=== PATIENT | female | born 1955 | race Hispanic/Latino ===

== ENCOUNTER 2018-02-24 04:51 | Observation (INO) | payer MEDICAID, SELFPAY ==
[2018-02-24 07:57] LABS: Troponin I 0.126 ng/mL (< 0.028)
[2018-02-24] MEDS ORDERED: Acetaminophen 325 MG TAB PO PRN ×2 (08:25→09:16)
[2018-02-24] MEDS ORDERED: Ondansetron PF 4 MG/2 ML Vial IVP PRN ×2 (08:25→09:16)
[2018-02-24] MEDS ORDERED: Ondansetron ODT 4 MG TAB SL PRN (08:25)
[2018-02-24 08:38] VITALS: BMI 34.2
[2018-02-24] MEDS ORDERED: Furosemide 20 MG/2 ML VIAL SLOW IVP SCH (09:16)
[2018-02-24] MEDS ORDERED: Bisacodyl 5 MG TAB PO PRN (09:16)
[2018-02-24] MEDS ORDERED: Bisacodyl 10 MG SUPP PR PRN (09:16)
[2018-02-24] MEDS ORDERED: HumaLOG 300 UNITS/3 ML VIAL SC PRN (09:16)
[2018-02-24] MEDS ORDERED: Calcium Carbonate 500 MG ChewTAB PO PRN (09:16)
[2018-02-24] MEDS ORDERED: Loratadine 10 MG TAB PO PRN (09:16)
[2018-02-24] MEDS ORDERED: Sodium Chloride 0.65% Nasal 44 ML BOT EA NARE PRN (09:16)
[2018-02-24] MEDS ORDERED: Senokot S 8.6-50 MG TAB PO PRN (09:16)
[2018-02-24] MEDS ORDERED: Eucerin (Mineral Oil/Petrolatum,White) 30 gm Jar TOP PRN (09:16)
[2018-02-24] MEDS ORDERED: Ondansetron ODT 4 MG TAB PO PRN (09:16)
[2018-02-24] MEDS ORDERED: Artificial Tears 18 DROP/0.9 ML EA EYE PRN (09:16)
[2018-02-24] MEDS ORDERED: Diabetic Tussin 200 MG/10 ML UDCUP PO PRN (09:16)
[2018-02-24] MEDS ORDERED: Dextrose 50% Abboject 50 ML SYRINGE SLOW IVP PRN (09:16)
[2018-02-24] MEDS ORDERED: Cepastat Lozenges 1 LOZ PO PRN (09:16)
[2018-02-24] MEDS ORDERED: hydrALAZINE 20 MG/ML VIAL SLOW IVP PRN (09:16)
[2018-02-24] MEDS ORDERED: HYDROcodone/Acetaminophen 5/325 mg Tablet PO PRN (09:16)
[2018-02-24] MEDS ORDERED: Loperamide HCl 2 MG CAP PO PRN (09:16)
[2018-02-24] MEDS ORDERED: Zolpidem Tartrate 5 MG TAB PO PRN (09:16)
[2018-02-24] MEDS ORDERED: Dextrose 5% in Water 1,000 ML IV PRN (09:16)
[2018-02-24] MEDS ORDERED: Nitroglycerin 0.4 MG TAB (25 Tab Bottle) SL PRN (09:16)
[2018-02-24] MEDS ORDERED: Potassium Chloride 20 MEQ TAB PO SCH (09:45)
[2018-02-24] MEDS: HumaLOG 300 UNITS/3 ML VIAL SC PRN ×2 (10:46→16:54)
--- NOTE | 2018-02-24 12:56 | HP ---
PRIMARY CARE PHYSICIAN: Luba Ferguson MD REASON FOR ADMISSION: Acute on chronic systolic congestive heart failure exacerbation. HISTORY OF PRESENT ILLNESS: A 62-year-old female, who has underlying history of hypertension, diabetes type 2, hypothyroidism, and coronary artery disease required CABG, who presented to emergency room with complaint of increasing shortness of breath. The patient was initially evaluated in [facility], and subsequently, she was transferred to our hospital for further evaluation and treatment. This patient has dyspnea on exertion. This is gradually getting worse. Nowadays, the patient is only able to walk few steps and she gets out of breath. She does have stable orthopnea. She never had any PND. She did notice increasing bilateral lower extremity pitting edema. She also gained some weight. She denies any cough, chest pain, palpitation, or syncope. She denies any constipation, diarrhea, melena, or hematochezia. She denies any UTI symptoms. At [facility], the patient had routine blood test, which showed elevated BNP and she had elevated troponin. The patient was treated with Lasix and the patient was feeling much better and subsequently, she was transferred to our emergency room. When she presented to our emergency room, she was hypertensive. She was saturating normal. She was observed on telemetry floor for a CHF treatment. PAST MEDICAL HISTORY: 1. Chronic systolic and diastolic heart failure with EF 40% to 45%. 2. History of colorectal cancer treated with resection and colostomy. The patient also had chemotherapy and radiation therapy for rectal cancer. 3. History of coronary artery disease required CABG x3 in October 2016. 4. Obesity. 5. Hypertension. 6. Diabetes type 2. 7. Dyslipidemia. 8. Hypothyroidism. 9. Gastroesophageal reflux disease. PAST SURGICAL HISTORY: Rectal cancer treated with resection and colostomy and CABG x3 in October 2016. PAST PSYCHIATRIC HISTORY: Anxiety disorder. SOCIAL HISTORY: The patient is Frisian speaking. She lives at home with family. No history of tobacco, alcohol, or illicit drug abuse. FAMILY HISTORY: Positive for diabetes and cancer amongst several family members. EMERGENCY ROOM COURSE: The patient is given aspirin in our emergency room and the patient was given Lasix at [facility]. ALLERGIES: NO KNOWN DRUG ALLERGIES. CURRENT HOME MEDICATIONS: 1. Aspirin 81 mg daily. 2. Lipitor 10 mg p.o. daily. 3. BuSpar 5 mg p.o. b.i.d. 4. Dexilant 30 mg daily. 5. Levemir insulin 90 units subcu b.i.d. 6. Novolin R subcu t.i.d. 7. Synthroid 75 mcg p.o. daily. 8. Metformin 500 mg p.o. b.i.d. 9. Lopressor 50 mg p.o. b.i.d. REVIEW OF SYSTEMS: CONSTITUTIONAL: Negative for weight loss or gain, ability to conduct usual activities. SKIN: Negative for rash, itching. EYES: Negative for double vision, pain. ENT/MOUTH: Negative for nose bleeding, neck stiffness, pain, tenderness. CARDIOVASCULAR: Negative for palpitations, dyspnea on exertion, orthopnea. RESPIRATORY: Negative for shortness of breath, wheezing, cough, hemoptysis, fever or night sweats. GASTROINTESTINAL: Negative for poor appetite, abdominal pain, heartburn, nausea , vomiting, constipation, or diarrhea. GENITOURINARY: Negative for urgency, frequency, dysuria, nocturia. MUSCULOSKELETAL: Negative for pain, swelling. NEUROLOGIC/PSYCHIATRIC: Negative for anxiety, depression. ALLERGY/IMMUNOLOGIC: Negative for skin rash, bleeding tendency. See my HPI for pertinent positive and negative. All other review of systems reviewed and negative except as mentioned in HPI. PHYSICAL EXAMINATION: VITAL SIGNS: On arrival, blood pressure, pulse 94, respiratory rate 23, temperature 98.1, and saturation 94% on room air. Weight 87 kg. GENERAL: The patient is currently alert, awake, in no obvious acute distress. HEENT: Head; normocephalic and atraumatic. Eyes; pupils are round and reactive to light. Extraocular muscle intact. ENT, oropharynx within normal limits. Moist mucous membranes. No oral lesion. No pharyngeal erythema. No exudate. NECK: Supple. No JVD. No thyromegaly. No carotid bruit. No jugular venous distention. LUNGS: Few basilar rales noted. No wheeze. No rhonchi. No accessory muscles of respiration in use. CARDIAC: S1 and S2 regular without any significant murmur. ABDOMEN: Obesity present. Bowel sounds present. Nontender. Nondistended. No organomegaly. No mass. No suprapubic tenderness. BACK: Unremarkable. No CVA tenderness. EXTREMITIES: Upper extremities; passive movement of all joints are normal. Lower extremity, bilateral lower extremity pitting edema noted. Good distal pulsation. SKIN: No skin rash. HEMATOLOGICAL SYSTEM: No lymphadenopathy. PSYCHIATRIC: Normal affect. SIGNIFICANT LABORATORY DATA: CBC; WBC 7.6, hemoglobin 10.9, and platelet 299. BMP; sodium 139, potassium 4.9, chloride 108, carbon dioxide 20, BUN 23, creatinine 0.86, glucose 184, and calcium 9.4. LFT: AST 90; ALT 129; alkaline phosphatase 118; albumin 3.8; CK-MB 1.7; troponin 0.097, then 0.122, then 0.126. BNP 512.2. Glucose 407. ASSESSMENT AND PLAN: Impression: 1. Acute on chronic systolic congestive heart failure exacerbation, ACC-[place] stage C. The patient will require Lasix 40 mg IV b.i.d. Fluid restriction 1500 mL per day. We will continue with Coreg 3.125 mg p.o. b.i.d. and start lisinopril 2.5 mg p.o. daily. Echocardiography will be obtained to assess ejection fraction and other structural abnormality. 2. Abnormal LFT, likely related with passive congestion from congestive heart failure. We will repeat CMP tomorrow. 3. Elevated troponin, likely due to demand ischemia. The patient does not have any chest pain, does not have any EKG changes. We will check lipid profile tomorrow morning. 4. Three-vessel coronary artery disease with history of coronary artery bypass grafting. We will continue aspirin 325 mg p.o. daily, Lipitor 10 mg p.o. at bedtime, Coreg 3.125 mg p.o. b.i.d., and lisinopril 2.5 mg p.o. daily. 5. Anemia, normocytic normochromic. We will check ferritin tomorrow and continue with ferrous sulfate 325 mg p.o. daily. 6. Diabetes, type 2. We will continue the patient's home medication with insulin and diabetic diet will be given. 7. Hypothyroidism. We will check TSH tomorrow and continue Synthroid 75 mcg p.o. daily. 8. Deep venous thrombosis prophylaxis. Lovenox 40 mg subcu daily. 9. Gastrointestinal prophylaxis. Pepcid 20 mg p.o. b.i.d. 10. Obesity. Dietary education given, weight loss education given, healthy lifestyle measure discussed with the patient. DISPOSITION PLAN: Based on clinical course, if the patient improves by tomorrow , then we will consider discharging her home with p.o. Lasix. If the patient's condition does not improve, then we will consider changing to inpatient status if needed. Plan of care discussed with the patient and family member at bedside. Job ID: [id number] MTDD
[2018-02-24] MEDS: Furosemide 40 MG/4 ML VIAL SLOW IVP SCH (13:49)
[2018-02-24 13:54] LABS: Troponin I 0.123 ng/mL (< 0.028)
[2018-02-24] MEDS ORDERED: INSULIN DETEMIR SQ SCH (21:00)
[2018-02-24] MEDS: busPIRone HCl 5 MG TAB PO SCH (21:11)
[2018-02-24] MEDS: Famotidine 20 MG TAB PO SCH (21:11)
[2018-02-24] MEDS: Atorvastatin Calcium 10 MG TAB PO SCH (21:12)
[2018-02-24] MEDS: Carvedilol 3.125 MG TAB PO SCH (21:12)
[2018-02-24] MEDS: Insulin Glargine 90 UNITS in Pre-Filled Syringe 1 EACH SC SCH (21:13)
[2018-02-25] MEDS ORDERED: Levothyroxine Sodium 75 MCG TAB PO SCH (06:00)
[2018-02-25 06:19] LABS: #Eosinphils 0.2 thou/uL (0.0-0.7); #Lymphocytes 1.6 thou/uL (1.20-3.40); #Monocytes 0.7 thou/uL (0.11-0.59); #Neutrophils 3.9 thou/uL (1.40-6.50); %Basophils 0.5 % (0.0-1.0); %Eosinophils 2.5 % (0.0-10.0); %Lymphocytes 25.2 % (21.0-51.0); %Monocytes 10.4 % (0.0-10.0); %Neutrophils 61.4 % (42.0-75.0); Mean Corpuscular HGB CONC 32.9 g/dL (32.0-36.0); Mean Corpuscular Hemoglobin 28.9 pg (27.0-31.0); Mean Corpuscular Volume 87.8 fL (78.0-98.0); Mean Platelet Volume 6.9 fL (7.4-10.4); Platelet Count 285 thou/uL (130-400); RBC Distribution Width 13.7 % (11.5-14.5); Red Blood Cell (RBC) Count 3.81 mill/uL (4.20-5.40); White Blood Cell (WBC) Count 6.4 thou/uL (4.8-10.8)
[2018-02-25] MEDS: HumaLOG 300 UNITS/3 ML VIAL SC PRN ×3 (06:28→17:20)
[2018-02-25] MEDS: Furosemide 40 MG/4 ML VIAL SLOW IVP SCH ×2 (06:31→15:03)
[2018-02-25 06:37] LABS: ALT (SGPT) 85 U/L (8-55); AST (SGOT) 23 U/L (5-34); Albumin 3.5 g/dL (3.4-4.8); Alkaline Phosphatase 109 U/L (40-150); Anion Gap 12 mmol/L (10-20); BUN (Urea Nitrogen) 32 mg/dL (9.8-20.1); Bilirubin, Total 0.2 mg/dL (0.2-1.2); Calc. Creatinine Clearance 68 mL/min (70-130); Calcium 9.2 mg/dL (7.8-10.44); Carbon Dioxide 28 mmol/L (23-31); Chloride 103 mmol/L (98-107); Estimated GFR-MDRD 48; Globulin 3.3 g/dL (2.4-3.5); Glucose 298 mg/dL (80-115); Magnesium 1.2 mg/dL (1.6-2.6); Potassium 4.6 mmol/L (3.5-5.1); Protein, Total 6.8 g/dL (6.0-8.3); Sodium 138 mmol/L (136-145); Uric Acid 7.2 mg/dL (2.6-6.0)
[2018-02-25 06:54] LABS: Ferritin 48.48 ng/mL (10-291); Thyroid Stimulating Hormone 3.8128 uIU/mL (0.35-4.94)
[2018-02-25] MEDS ORDERED: Magnesium Sulfate 4 GM in Sodium Chloride 0.9% 250 ML 250 ML IVPB SCH ×2 (08:15→09:06)
[2018-02-25] MEDS: Carvedilol 3.125 MG TAB PO SCH ×2 (08:17→21:04)
[2018-02-25] MEDS: Famotidine 20 MG TAB PO SCH ×2 (08:17→21:04)
[2018-02-25] MEDS: Lisinopril 2.5 MG TAB PO SCH (08:17)
[2018-02-25] MEDS: Ferrous Sulfate 325 MG TAB PO SCH (08:17)
[2018-02-25] MEDS: Aspirin 325 MG TAB PO SCH (08:17)
[2018-02-25] MEDS: Enoxaparin Sodium 40 MG/0.4 ML SYRINGE SC SCH (08:18)
[2018-02-25] MEDS: Insulin Glargine 90 UNITS in Pre-Filled Syringe 1 EACH SC SCH ×2 (08:18→21:04)
[2018-02-25] MEDS: metFORMIN 500 MG TAB PO SCH ×2 (08:18→17:20)
[2018-02-25] MEDS: busPIRone HCl 5 MG TAB PO SCH ×2 (08:18→21:04)
[2018-02-25 08:47] LABS: #Basophils 0.1 thou/uL (0.0-0.2); #Eosinphils 0.1 thou/uL (0.0-0.7); #Lymphocytes 1.4 thou/uL (1.20-3.40); #Monocytes 0.6 thou/uL (0.11-0.59); %Basophils 1.7 % (0.0-1.0); %Eosinophils 1.3 % (0.0-10.0); %Monocytes 9.5 % (0.0-10.0); %Neutrophils 64.5 % (42.0-75.0); Hemoglobin 12.2 g/dL (12.0-16.0); Mean Corpuscular HGB CONC 32.9 g/dL (32.0-36.0); Mean Corpuscular Hemoglobin 28.7 pg (27.0-31.0); Mean Corpuscular Volume 87.2 fL (78.0-98.0); Mean Platelet Volume 6.8 fL (7.4-10.4); Platelet Count 315 thou/uL (130-400); RBC Distribution Width 13.8 % (11.5-14.5); Red Blood Cell (RBC) Count 4.23 mill/uL (4.20-5.40); White Blood Cell (WBC) Count 6.2 thou/uL (4.8-10.8)
[2018-02-25 09:06] LABS: ALT (SGPT) 90 U/L (8-55); AST (SGOT) 23 U/L (5-34); Albumin 3.9 g/dL (3.4-4.8); Alkaline Phosphatase 124 U/L (40-150); Bilirubin, Direct 0.1 mg/dL (0.1-0.3); Bilirubin, Total 0.3 mg/dL (0.2-1.2); Cardiac Risk 4.6 (Less than 4.5); Cholesterol 193 mg/dl (< 200 Desired); HDL Cholesterol 42 mg/dL (>60 Neg Risk); Iron 76 ug/dL (50-170); Iron Binding Capacity, Total 368 mcg/dL (265-497); LDL Cholesterol, Calculated 117 mg/dL; Protein, Total 7.6 g/dL (6.0-8.3); Triglycerides 169 mg/dL (Less than 150)
[2018-02-25 09:38] LABS: Folate (Folic Acid) 8.4 ng/mL (7.0-31.4); Thyroid Stimulating Hormone 5.6508 uIU/mL (0.35-4.94)
--- NOTE | 2018-02-25 16:04 | PDOC.PN ---
- Subjective Encounter Start Date: 02/25/18 Encounter Start Time: 14:03 Subjective: Patient feeling well in herself. Denies CP, SOB, WINN or palpitations. -: Her symptoms fully resolved. No fevers. Has been ambulating. -: Denies n/v. No abdo pain or bowel changes. No complaints. - Objective Resuscitation Status - Order Detail: 02/24/18 09:11 Resuscitation Status Routine Resuscitation Status: FULL: Full Resuscitation MAR Reviewed: Yes Vital Signs & Weight: Vital Signs (12 hours) Temp Pulse Pulse Pulse Resp BP BP 02/25/18 15:37 98.0 F 85 24 H 02/25/18 11:10 97.7 F 82 18 02/25/18 08:45 106 H 91 142/66 H 02/25/18 08:17 80 166/72 H 02/25/18 07:54 97.9 F 81 16 02/25/18 05:20 80 166/72 H BP BP Pulse Ox Pulse Ox Pulse Ox 02/25/18 15:37 126/60 92 L 02/25/18 11:10 134/60 93 L 02/25/18 08:45 156/68 H 94 L 95 02/25/18 08:17 02/25/18 07:54 148/68 H 92 L 02/25/18 05:20 Weight Weight 176 lb 4.8 oz I&O: 02/24/18 02/25/18 02/26/18 06:59 06:59 06:59 Intake Total 900 4 Output Total 2950 500 Balance -4890 -381 Result Diagrams: 02/25/18 08:35 02/25/18 06:02 Additional Labs: Accuchecks 02/25/18 02/25/18 02/25/18 10:20 05:24 03:18 POC Glucose 351 H 279 H 304 H 02/24/18 02/24/18 20:46 16:52 POC Glucose 273 H 304 H Phys Exam - Physical Examination HEENT: PERRLA, moist MMs, oral pharynx no lesions Neck: no nodes, no JVD, supple, full ROM Respiratory: no wheezing, no rales, no rhonchi, clear to auscultation bilateral Cardiovascular: RRR Gastrointestinal: soft, non-tender, no distention Musculoskeletal: no edema, pulses present Neurological: non-focal, normal sensation, moves all 4 limbs Psychiatric: normal affect, A&O x 3 Skin: no rash, normal turgor, cap refill <2 seconds Dx/Plan (1) SOB (shortness of breath) on exertion Code(s): R06.02 - SHORTNESS OF BREATH Status: Resolved (2) Elevated troponin Code(s): R74.8 - ABNORMAL LEVELS OF OTHER SERUM ENZYMES Status: Acute (3) 3-vessel coronary artery disease Status: Chronic Comment: s/p CABG x 3v (4) DM II (diabetes mellitus, type II), controlled Code(s): E11.9 - TYPE 2 DIABETES MELLITUS WITHOUT COMPLICATIONS Status: Chronic Comment: (5) Dyslipidemia Code(s): E78.5 - HYPERLIPIDEMIA, UNSPECIFIED Status: Chronic (6) HTN (hypertension) Code(s): I10 - ESSENTIAL (PRIMARY) HYPERTENSION Status: Chronic Qualifiers: Hypertension type: essential hypertension Qualified Code(s): I10 - Essential (primary) hypertension Comment: (7) Hypothyroidism Code(s): E03.9 - HYPOTHYROIDISM, UNSPECIFIED Status: Chronic Comment: - Plan cont current plan of care, plan discussed w/ family, out of bed/ambulate Awaiting Echo. -: TSH raised. Reports Levothyroxine 88 mcg daily, recent increase. -: Increased current dose of Levothyroxine. Home meds updated. * .
[2018-02-25] MEDS: Atorvastatin Calcium 10 MG TAB PO SCH (21:04)
[2018-02-26] MEDS: Levothyroxine Sodium 88 MCG TAB PO SCH (05:02)
[2018-02-26] MEDS: Furosemide 40 MG/4 ML VIAL SLOW IVP SCH (05:02)
[2018-02-26 06:24] LABS: #Eosinphils 0.2 thou/uL (0.0-0.7); #Lymphocytes 1.6 thou/uL (1.20-3.40); #Monocytes 0.6 thou/uL (0.11-0.59); #Neutrophils 5.7 thou/uL (1.40-6.50); %Basophils 0.5 % (0.0-1.0); %Eosinophils 2.1 % (0.0-10.0); %Lymphocytes 19.8 % (21.0-51.0); %Monocytes 7.9 % (0.0-10.0); %Neutrophils 69.8 % (42.0-75.0); Hemoglobin 12.1 g/dL (12.0-16.0); Mean Corpuscular HGB CONC 33.6 g/dL (32.0-36.0); Mean Corpuscular Hemoglobin 29.3 pg (27.0-31.0); Platelet Count 338 thou/uL (130-400); RBC Distribution Width 13.7 % (11.5-14.5); Red Blood Cell (RBC) Count 4.12 mill/uL (4.20-5.40); White Blood Cell (WBC) Count 8.1 thou/uL (4.8-10.8)
[2018-02-26 06:35] LABS: Anion Gap 17 mmol/L (10-20); BUN (Urea Nitrogen) 46 mg/dL (9.8-20.1); Calc. Creatinine Clearance 53 mL/min (70-130); Calcium 9.9 mg/dL (7.8-10.44); Carbon Dioxide 23 mmol/L (23-31); Chloride 102 mmol/L (98-107); Estimated GFR-MDRD 39; Glucose 196 mg/dL (80-115); Magnesium 2.2 mg/dL (1.6-2.6); Potassium 4.5 mmol/L (3.5-5.1); Sodium 137 mmol/L (136-145)
[2018-02-26] MEDS: Aspirin 325 MG TAB PO SCH (08:22)
[2018-02-26] MEDS: busPIRone HCl 5 MG TAB PO SCH ×2 (08:23→20:23)
[2018-02-26] MEDS: Carvedilol 3.125 MG TAB PO SCH ×2 (08:23→20:24)
[2018-02-26] MEDS: Lisinopril 2.5 MG TAB PO SCH (08:23)
[2018-02-26] MEDS: metFORMIN 500 MG TAB PO SCH ×2 (08:23→17:14)
[2018-02-26] MEDS: Enoxaparin Sodium 40 MG/0.4 ML SYRINGE SC SCH (08:23)
[2018-02-26] MEDS: Famotidine 20 MG TAB PO SCH ×2 (08:23→20:23)
[2018-02-26] MEDS: Ferrous Sulfate 325 MG TAB PO SCH (08:23)
[2018-02-26] MEDS: Insulin Glargine 90 UNITS in Pre-Filled Syringe 1 EACH SC SCH ×2 (08:24→20:25)
[2018-02-26] MEDS: HumaLOG 300 UNITS/3 ML VIAL SC PRN (11:51)
--- NOTE | 2018-02-26 17:54 | PDOC.PN ---
- Subjective Encounter Start Date: 02/26/18 Encounter Start Time: 09:08 Subjective: Feeling well in herself. No complaints. No fevers. -: Tolerating oral intake. No n/v. No abdo pain. -: Ambulating without difficulty. No CP or sob. No dizziness. - Objective Resuscitation Status - Order Detail: 02/24/18 09:11 Resuscitation Status Routine Resuscitation Status: FULL: Full Resuscitation MAR Reviewed: Yes Vital Signs & Weight: Vital Signs (12 hours) Temp Pulse Pulse Pulse Resp BP BP 02/26/18 15:16 98.0 F 90 20 02/26/18 11:30 97.6 F 84 16 02/26/18 09:32 94 94 126/58 L 100/53 L 02/26/18 08:23 88 02/26/18 07:23 98.0 F 88 16 BP Pulse Ox Pulse Ox Pulse Ox 02/26/18 15:16 138/65 93 L 02/26/18 11:30 129/61 92 L 02/26/18 09:32 95 93 L 02/26/18 08:23 02/26/18 07:23 127/60 92 L Weight Weight 173 lb 3.2 oz I&O: 02/25/18 02/26/18 02/27/18 06:59 06:59 06:59 Intake Total 900 844 Output Total 2950 2150 100 Balance 2050 -1306 -100 Result Diagrams: 02/26/18 06:17 02/26/18 06:17 Additional Labs: Accuchecks 02/26/18 02/26/18 02/26/18 16:54 11:36 06:16 POC Glucose 133 H 358 H 176 H 02/25/18 20:29 POC Glucose 276 H Phys Exam - Physical Examination Constitutional: NAD HEENT: PERRLA, moist MMs, oral pharynx no lesions Neck: no nodes, supple, full ROM Respiratory: no wheezing, no rales, no rhonchi, clear to auscultation bilateral Cardiovascular: RRR Gastrointestinal: soft, non-tender, no distention, positive bowel sounds Musculoskeletal: no edema, pulses present long standing deformity of left knee, well healed scar. Chronic pain. no welling/redness Neurological: non-focal, normal sensation, moves all 4 limbs Psychiatric: normal affect, A&O x 3 Skin: no rash, cap refill <2 seconds Dx/Plan (1) SOB (shortness of breath) on exertion Code(s): R06.02 - SHORTNESS OF BREATH Status: Resolved (2) Elevated troponin Code(s): R74.8 - ABNORMAL LEVELS OF OTHER SERUM ENZYMES Status: Acute (3) 3-vessel coronary artery disease Status: Chronic Comment: s/p CABG x 3v (4) DM II (diabetes mellitus, type II), controlled Code(s): E11.9 - TYPE 2 DIABETES MELLITUS WITHOUT COMPLICATIONS Status: Chronic Comment: (5) Dyslipidemia Code(s): E78.5 - HYPERLIPIDEMIA, UNSPECIFIED Status: Chronic (6) HTN (hypertension) Code(s): I10 - ESSENTIAL (PRIMARY) HYPERTENSION Status: Chronic Qualifiers: Hypertension type: essential hypertension Qualified Code(s): I10 - Essential (primary) hypertension Comment: (7) Hypothyroidism Code(s): E03.9 - HYPOTHYROIDISM, UNSPECIFIED Status: Chronic Comment: - Plan cont current plan of care Awaiting Echo. -: Hold Lasix as no longer edematous and low BP. Monitor BP. -: Possible discharge pending Echo report. -: Consider cardiology consult if needed, as per discussion with Dr. Wharton. * .
[2018-02-26] MEDS: Atorvastatin Calcium 10 MG TAB PO SCH (20:23)
[2018-02-27 05:08] LABS: #Eosinphils 0.2 thou/uL (0.0-0.7); #Lymphocytes 1.8 thou/uL (1.20-3.40); #Monocytes 0.6 thou/uL (0.11-0.59); #Neutrophils 4.9 thou/uL (1.40-6.50); %Basophils 0.6 % (0.0-1.0); %Eosinophils 2.2 % (0.0-10.0); %Lymphocytes 23.6 % (21.0-51.0); %Monocytes 8.1 % (0.0-10.0); %Neutrophils 65.6 % (42.0-75.0); Hemoglobin 11.4 g/dL (12.0-16.0); Mean Corpuscular HGB CONC 32.7 g/dL (32.0-36.0); Mean Corpuscular Hemoglobin 28.6 pg (27.0-31.0); Mean Corpuscular Volume 87.4 fL (78.0-98.0); Mean Platelet Volume 7.3 fL (7.4-10.4); Platelet Count 329 thou/uL (130-400); RBC Distribution Width 13.9 % (11.5-14.5); Red Blood Cell (RBC) Count 3.98 mill/uL (4.20-5.40); White Blood Cell (WBC) Count 7.5 thou/uL (4.8-10.8)
[2018-02-27 05:25] LABS: Anion Gap 14 mmol/L (10-20); BUN (Urea Nitrogen) 56 mg/dL (9.8-20.1); Calc. Creatinine Clearance 53 mL/min (70-130); Calcium 9.6 mg/dL (7.8-10.44); Carbon Dioxide 27 mmol/L (23-31); Chloride 103 mmol/L (98-107); Estimated GFR-MDRD 39; Glucose 83 mg/dL (80-115); Potassium 4.2 mmol/L (3.5-5.1); Sodium 140 mmol/L (136-145)
[2018-02-27] MEDS: Levothyroxine Sodium 88 MCG TAB PO SCH (06:36)
[2018-02-27] MEDS: metFORMIN 500 MG TAB PO SCH ×2 (09:42→17:17)
[2018-02-27] MEDS: Enoxaparin Sodium 40 MG/0.4 ML SYRINGE SC SCH (09:42)
[2018-02-27] MEDS: Carvedilol 3.125 MG TAB PO SCH (09:42)
[2018-02-27] MEDS: busPIRone HCl 5 MG TAB PO SCH (09:42)
[2018-02-27] MEDS: Aspirin 325 MG TAB PO SCH (09:42)
[2018-02-27] MEDS: Ferrous Sulfate 325 MG TAB PO SCH (09:42)
[2018-02-27] MEDS: Famotidine 20 MG TAB PO SCH (09:42)
[2018-02-27] MEDS: Insulin Glargine 90 UNITS in Pre-Filled Syringe 1 EACH SC SCH (09:42)
[2018-02-27] MEDS: Lisinopril 2.5 MG TAB PO SCH (10:40)
[2018-02-27] MEDS: HumaLOG 300 UNITS/3 ML VIAL SC PRN (13:09)
[2018-02-27 16:05] VITALS: BP 158/75; TEMP 97.7
--- NOTE | 2018-02-28 14:30 | DIS ---
DATE OF ADMISSION: 02/24/2018 DATE OF DISCHARGE: 02/27/2018 PRIMARY CARE PROVIDER: Ana Barroso. CONSULTANTS: None. PROCEDURES: The patient had an echocardiogram that showed an ejection fraction of 50%-55%, mildly dilated left atrium, left ventricular size is normal. Impaired relaxation compatible with diastolic dysfunction, mild mitral regurgitation, and mild tricuspid regurgitation. DISCHARGE DIAGNOSES: 1. Acute on chronic systolic congestive heart failure exacerbation, improved. 2. Elevated troponin, likely due to demand ischemia. 3. Three-vessel coronary artery disease with history of coronary artery bypass grafting. 4. Anemia, normocytic normochromic. 5. Diabetes type 2. 6. Hypothyroidism. HOSPITAL COURSE: Ms. Mcdaniel is a 62-year-old female with an underlying history of hypertension, diabetes, hypertension, hypothyroidism, and coronary artery disease requiring CABG, who presented to the emergency room complaining of increasing shortness of breath. She initially presented and was evaluated at [facility] and was treated and sent to [facility] in [place], [place], for admission and further evaluation. The patient reported dyspnea on exertion, which had gradually gotten worse. She also noticed increasing bilateral lower extremity pitting edema. She denies any cough, chest pain, palpitations, or syncope. She also denied any constipation, diarrhea, melena or UTI symptoms. In [place], she was given Lasix and showed to have an elevated troponin. She was sent to [facility] for admission and further management. She was started on Lasix and restarted on her home medications. She reports that she felt better even before she left [place] . Denies any further shortness of breath or other symptoms. Subsequently patient was discharged home to follow up with primary care within one week. The patient was examined on the day of discharge. Denies any chest pain, shortness of breath, or lower leg edema. REVIEW OF SYSTEMS: Completed and are negative unless mentioned in the hospital course. PHYSICAL EXAMINATION: VITAL SIGNS: Temperature is 98.1, pulse is 89, respirations 16, pulse ox is 92% on room air, blood pressure is 136/64 GENERAL: The patient is in no apparent distress. She is sitting up. She just finished breakfast. HEAD: Head is atraumatic, normocephalic. EYES: Eyelids are normal to inspection. Pupils are equal, round, and reactive to light. Extraocular muscles are intact. ENT: Mouth exam is normal. Mucous membranes are moist. NECK: No JVD is noted. Normal range of motion. Trachea is midline. RESPIRATORY/CHEST: No respiratory distress is noted. Breath sounds are clear. CARDIOVASCULAR: Normal rate and rhythm. Heart sounds are normal. ABDOMEN: Female, nontender on palpation. Bowel sounds are present. BACK: Normal inspection. Range of motion is normal. No tenderness. EXTREMITIES: Upper extremity, normal finding. Inspection is normal. Range of motion is normal. Motor strength is normal. Sensation is intact. Radial pulses equal bilaterally. Lower extremity range of motion is normal. Motor and strength normal. Sensation intact. Pedal pulses normal bilaterally. Trace edema is noted to bilateral extremities. NEURO: The patient is alert, oriented to person, place, and time. Speech is normal. Gait is normal. No focal motor or sensory deficits. SKIN: Warm, dry, normal in color. PSYCH: The patient has a normal affect. HOME MEDICATIONS: 1. Aspirin 81 mg p.o. daily. 2. Lipitor 10 mg p.o. daily. 3. BuSpar 5 mg p.o. b.i.d. 4. Dexilant 30 mg p.o. daily. 5. Ibuprofen 800 mg p.o. t.i.d. 6. Levemir 90 units subcu b.i.d. 7. Novolin-R 20 units subcu t.i.d. 8. Levothyroxine 88 mcg p.o. daily. 9. Metformin 500 mg p.o. t.i.d. 10. 500 mg p.o. b.i.d. 11. Lopressor 50 mg p.o. b.i.d. ALLERGIES: NO KNOWN ALLERGIES. CONDITION: Stable. DISPOSITION: The patient will be discharged home. DISCHARGE INSTRUCTIONS: The patient is to follow up with primary care in [place] within one week. Job ID: [id number]
== END 2018-02-27 17:31 | disposition home or self-care (01) ==
LOC: ERS 04:51 → 2SW 05:49
PROVIDERS: ADMIT Internal Medicine; ATTEND Internal Medicine
DX: I11.0 Hypertensive heart disease with heart failure (principal); I50.23 Acute on chronic systolic (congestive) heart failure; I25.10 Atherosclerotic heart disease of native coronary artery without angina pectoris; E66.9 Obesity, unspecified; E11.9 Type 2 diabetes mellitus without complications; E78.5 Hyperlipidemia, unspecified; E03.9 Hypothyroidism, unspecified; K21.9 Gastro-esophageal reflux disease without esophagitis; D64.9 Anemia, unspecified; Z79.82 Long term (current) use of aspirin; Z79.899 Other long term (current) drug therapy; Z68.33 Body mass index [BMI] 33.0-33.9, adult; Z79.4 Long term (current) use of insulin
CPT/HCPCS: 36415; 36416; 80048; 80053; 80061; 82607; 82728; 82746; 83540; 83550; 83735; 83880; 84443; 84550; 85025; 93306; 93798; 96365; 96366; 96372; 96375; 96376; 99285; G0378; J1650; J1940; J3475; J7050